=== PATIENT | female | born 1940 | race Caucasian/White ===

== ENCOUNTER 2016-08-07 13:26 | Day surgery (SDC) | payer MEDICARE ==
[~2016-08-07] VITALS: Ht 167.6 cm; Wt 64.4 kg
[~2016-08-07 13:26] MED LIST: 0.9% Sodium Chloride 1,000 ML IV SCH; Sodium Chloride LOK Flush 10 mL Syringe IV PRN; fentaNYL-PF 50 mCg/mL 2 mL Inj IVPUSH PRN
[2016-08-07] MEDS ORDERED: OMEP20CA11 PO (14:16)
[2016-08-07] MEDS ORDERED: FLUT9.9S NS (14:16)
[2016-08-07 14:17] VITALS: BP 117/76; PULSE 80; RESP 16; O2SAT 94
[2016-08-07 15:56] VITALS: BP 104/71; PULSE 72; RESP 16; O2SAT 98
--- NOTE | 2016-08-07 15:57 | PCM.ENDEGD ---
EGD Date of Service: August 07, 2016 Physician Leonides Gamez MD Pre Procedure Diagnosis: Melena Post Procedure Dx & Findings: Gastric ulcer healing Procedure Esophagogastroduodenoscopy PROCEDURE IN DETAIL: After proper sedation, Olympus video endoscope was inserted into patient's mouth and esophagus was successfully intubated. Scope introduced esophagus. Esophagus showed normal shiny whitish mucosa consistent with squamous cell component. Z line was intact at 39 cm from the incisors overall. However there was one spot that was irregular. This was biopsied.. Scope further advanced to the stomach. Stomach showed normal shiny mucosa with normal appearing rugae folds without any mass erosion. However in the antrum, there was a 4 mm healing ulcer with clean base. There was also a healing erosion nearby. Both were biopsied. Less than 1 mm few fundic polyps were noted. Sampling biopsies obtained. Cardia fundus body antrum pylorus were all visualized. Retroflexion was done. Stomach was easily inflated and deflatable using air. Scope further events to the distal duodenum. Duodenum revealed normal villous structures with normal appearing folds without any mass ulcer erosion. Impression Slightly irregular Z line status post biopsy Healing gastric ulcer healing gastric erosion. Based on looks, I do not really believe this could cause anemia and significant melena. However this could have been bigger in the past. Recommendation Prilosec 20 once a day Follow up in GI clinic with Adali Correa Stop all NSAIDs Presedation Assessment Risks and Benefits Informed consent was obtained from the patient after all risks and benefits including but not limited to drug reaction, infection, pain, bleeding, perforation, as well as alternatives were discussed. Patient monitoring Continuous pulse oximetry, cardiac monitoring, blood pressure monitoring, IV access, and oxygen at 2L per nasal cannula. Periprocedural Fentanyl: Fentanyl 150mcg Incrementally Midazolam: Midazolam 6mg Incrementally Complications There were no periprocedural complications identified. Post Procedure Plan Post Procedure Recommendations 1. Restrict activities today. 2. Resume normal activities in the morning. 3. Resume medications. 4. GERD behavioral modification: - Avoid fatty, acidic, spicy, large meals - Do not lie down after meals - Do not eat or drink anything for at least 2 1/2 hours before going to bed at night - Discontinue tobacco and alcohol - Decrease or avoid caffeine - Avoid chocolate and mints - Decrease weight - Avoid aspirin and non steroidal anti-inflammatory agents (NSAID) such as Aleve, Advil, Mobic, Naproxen, Ibuprofen, etc 5. Add proton pump inhibitor. Take 30 minutes before 1st meal of the day. 6. Patient informed of normal post procedure side effects as bloating, drowsiness, blood streaking in the stool 7. If gastric biopsy reveal H.pylori, continue with appropriate treatment 8. If small bowel biopsy reveals celiac, continue with appropriate treatment 9. Please don't hesitate to call me with any questions Leonides Gamez MD August 07, 2016 15:57
--- NOTE | 2016-08-07 15:59 | PCM.ENDCOL ---
Colonoscopy Date of Service: August 07, 2016 Physician Leonides Gamez MD Pre Procedure Diagnosis: Melena and anemia Post Procedure Dx & Findings: Polyp hemorrhoids diverticuli Procedure Colonoscopy PROCEDURE IN DETAIL: Prep adequate After unremarkable rectal examination the Olympus video colonoscope was inserted patient's anal canal and was advanced to cecum. Landmarks were identified including the ileocecal valve and appendiceal orifice. Scope advanced to terminal ileum. Advanced 10 cm. Terminal ileum showed normal villous structures without ulcer or mass erosion noted. Scope was withdrawn systematically. Visualized colonic mucosa showed healthy shiny mucosa with normal healthy-appearing vasculature. 2 mm polyp found in the ascending colon. This was resected completely using cold snare. In the sigmoid colon, there was a 1 mm polyp which was removed completely using cold forceps. In the sigmoid colon there a few small diverticuli. In the rectum retroflexion was done which showed hemorrhoids. Anal canal was inspected carefully on the way out and hemorrhoids noted. Impression Polyp 2 status post complete removal Diverticuli Normal TI No source of melena or anemia Hemorrhoids Recommendation Repeat colonoscopy 5 years Diverticular diet Presedation Assessment Risks and Benefits Informed consent was obtained from the patient after all risks and benefits including but not limited to drug reaction, infection, pain, bleeding, perforation, as well as alternatives were discussed. Patient monitoring Continuous pulse oximetry, cardiac monitoring, blood pressure monitoring, IV access, and oxygen at 2L per nasal cannula. Complications There were no periprocedural complications identified. Post Procedure Plan Post Procedure Recommendations 1. Restrict activities today. 2. Resume normal activities in the morning. 3. Resume medications. 4. Patient informed of normal post procedure side effects as bloating, drowsiness, blood streaking in the stool. 5. average risk CRCS. If colon polyps come back as: -Hyperplastic- can repeat colonoscopy in 10 years -Tubular adenoma- repeat colonoscopy in 5 years -Tubulovillous/villous adenoma- repeat colonoscopy in 3 years -If any dysplasia- return to clinic as soon as possible 6. Please don't hesitate to call me with any questions. Leonides Gamez MD August 07, 2016 15:59
[2016-08-07 16:07] VITALS: BP 102/66; PULSE 65; RESP 16; O2SAT 98
[2016-08-07 16:11] VITALS: BP 119/70; PULSE 57; RESP 16; O2SAT 98
--- NOTE | 2016-08-09 11:12 | PATH ---
SURGICAL PATHOLOGY Attending Physician:Leonides Gamez M.D. CASE STATUS: Signed Out PATIENT NAME: JIMBO NGUYỄN PID: [id number] : 1940 DATE COLLECTED:08/07/2016 00:00 SPECIMEN: 1: Gastric, Biopsy 2: Esophagus, Biopsy 3: Stomach, Polyp, Biopsy 4: Colon, Biopsy CLINICAL HISTORY: 1). GASTRIC BIOPSY 2). DISTAL ESOPHAGUS BIOPSY 3). GASTRIC POLYP 4). SIGMOID COLON POLYP FINAL DIAGNOSIS: 1.GASTRIC BIOPSY: MILD CHRONIC GASTRITIS, FOCALLY ACTIVE, INVOLVING ANTRAL MUCOSA. Immunohistochemistry for Helicobacter pending, to be reported by addendum. Negative for intestinal metaplasia. Negative for dysplasia and malignancy. 2.DISTAL ESOPHAGUS BIOPSY: SQUAMOUS MUCOSA AND MINUTE AMOUNT OF GASTRIC CARDIA-TYPE MUCOSA NEGATIVE FOR SPECIALIZED METAPLASIA OF VALLES' S-TYPE ESOPHAGUS. FOCAL PANCREATIC ACINAR METAPLASIA. Negative for dysplasia and malignancy. Negative for squamous intraepithelial eosinophils. 3.GASTRIC POLYP: FRAGMENTS OF GASTRIC MUCOSA CONSISTENT WITH BENIGN FUNDIC GLAND POLYP, NEGATIVE FOR ATYPIA. Negative for evidence of Helicobacter. Negative for intestinal metaplasia. 4.SIGMOID COLON POLYP: POLYPOID-SHAPED FRAGMENT OF COLON MUCOSA CONSISTENT WITH MUCOSAL POLYPOID REDUNDANCY. MILD MELANOSIS COLI. Negative for dysplasia and malignancy. ICD10 K29.70 GROSS DESCRIPTION: The specimen is received in four formalin filled containers labeled with the patient's name. 1). The specimen is sublabeled "gastric" and consists of a 0.5 x 0.3 x 0.2 CM portion of tissue which is entirely submitted in cassettes 1A. 2). The specimen is sublabeled "distal esophagus" and consists of a 0.3 x 0.2 x 0.2 CM portion of tissue which is entirely submitted in cassette 2A. 3). The specimen is sublabeled "gastric polyp" and consists of 2 portions of tissue which aggregate to 0.3 x 0.3 x 0.3 CM. The specimen is entirely submitted in cassette 3A. 4). The specimen is sublabeled "sigmoid colon polyp" and consists of a 0.3 x 0.2 x 0.2 CM portion of tissue which is entirely submitted in cassette 4A. 08/08/2016 DAC MICRO DESCRIPTION: See diagnosis. ICD-9 CODES: CPT CODES: 1: 91887, 56835 2: 17186 3: 04363 4: 03825 PROCEDURE/ADDENDA: Immunohistochemistry SPI Interpretation {Not Entered} Results-Comments Immunohistochemistry Results: 1.GASTRIC BIOPSY: NEGATIVE FOR HELICOBACTER PYLORI BY IMMUNOHISTOCHEMISTRY. This test was developed and its performance characteristics determined by [facility]. It has not been cleared or approved by the [place]. Food and Drug Administration. The FDA has determined that such clearance or approval is not necessary. This test is used for clinical purposes. It should not be regarded as investigational or for research. Electronically Signed Out Rony Prieto MD Electronically Signed Out Rony Prieto MD [facility] [address], [place] [address] Technical component performed at [facility], [facility] [address], [address]
== END 2016-08-07 23:59 | disposition home or self-care (01) ==
LOC: END 13:26
PROVIDERS: ATTEND Internal Medicine
DX: K63.5 Polyp of colon (principal); K64.9 Unspecified hemorrhoids; K57.30 Diverticulosis of large intestine without perforation or abscess without bleeding; K29.50 Unspecified chronic gastritis without bleeding; K31.7 Polyp of stomach and duodenum; K22.70 Barrett's esophagus without dysplasia; K63.89 Other specified diseases of intestine; K92.1 Melena; K21.9 Gastro-esophageal reflux disease without esophagitis; Z86.010 Personal history of colon polyps; Z80.0 Family history of malignant neoplasm of digestive organs
CPT/HCPCS: 43239; 45380; 45385; 88305; 88342; 99153; G0500; J7030